=== PATIENT | male | born 1970 | race Caucasian/White ===

== ENCOUNTER 2016-10-10 19:23 | Emergency (ER) | payer OTHER ==
[~2016-10-10 19:23] MED LIST: AMOXICILLIN PO; ASA CHILDREN'S81 MG PO; BYSTOLIC20 MG PO; DAILY VITAMIN1 EAC3 PO; FOLVITE-DPS1 MG PO; NEXIUM OTC PO; ZESTORETIC 10-1 EACH PO
--- NOTE | 2016-10-11 19:14 | ER ---
ADMIT: 10/10/2016 RM/LOC: ER [facility] MR#: [id number] [address] [id number] IBETHKACY SHERWOOD Jb [address] [address] Emergency Room Report SEX: M AGE: 45 : 1970 DATE: 10/10/2016 HISTORY OF PRESENT ILLNESS: The patient is a 45-year-old male with a past medical history of hypertension, compliant with his medication, came to the ER with chief complaint of left shoulder pain for 1 week. The patient states he woke up from sleep and noticed the left shoulder on the posterior just lateral to the shoulder blade is painful and tender. The patient denies any diaphoresis. The patient denies any chest pain too. Pain increases on palpation of the posterior chest. PHYSICAL EXAMINATION: VITAL SIGNS: The patient was mildly tachycardic in the ER, and was afebrile, blood pressure systolic was 146. GENERAL: The patient was anxious, but in no pain while he was sitting down still. HEAD and NECK: Noncontributory. There was no bruit on the neck. Trachea midline. LUNGS: Normal bilateral equal breath sounds. HEART: Normal S1, S2 without any murmurs or S3 or S4. ABDOMEN: Soft. EXTREMITIES: There was no swelling of the lower extremities. The rest of the physical examination is noncontributory. The patient had normal range of motion active and passive of the left shoulder. There is no crepitation in the chest. LABORATORY DATA AND IMAGING: Chest x-ray was negative for any pathologies or abnormalities. EKG showed normal sinus rhythm with a rate of 98. Troponin I was negative and WBC was 6.7 with hemoglobin of 16.5, and platelet of 270. Pain was controlled, the patient is stable and can be discharged to home with return precautions and follow up with the primary doctor as needed. Benny Sidhu MD/ ronni JOB #: [id number] CC: Benny Sidhu MD, Attending Physician Miguel Angel Orozco MD, Family Physician
== END 2016-10-10 23:09 | disposition home or self-care (01) ==
LOC: ER 19:23
DX: M25.512 Pain in left shoulder (principal)

== ENCOUNTER 2016-12-08 03:39 | Emergency (ER) | payer OTHER ==
--- NOTE | 2016-12-12 20:15 | ER ---
ADMIT: 12/08/2016 RM/LOC: [facility] MR#: [id number] [address] [address] KACY CRISTINA [address] [place] [id number] Emergency Room Report SEX: M AGE: 45 : 1970 DATE: 12/08/2016 TIME: 0339 hours. Please refer to my T-sheet for complete H and P. Briefly, the patient is a 45- year-old who noticed that he had blood in his sperm tonight, it was just in his sperm, no pain, no other complaints. He states that he had one episode a week ago. He denies any pain, fevers, or chills. No other complaints like I said. He is sexually active. Denies any trauma. PHYSICAL EXAMINATION: VITAL SIGNS: His blood pressure is 141/91, pulse 82, respiratory rate 14, temp 97.3, and saturating 100%. GENERAL: No acute distress. HEENT: Grossly normal. ABDOMEN: Soft. No CVA tenderness. : Exam shows a circumcised male. No lesions on the penis. No pain in the testicles whatsoever. No hernia. EMERGENCY DEPARTMENT COURSE: I checked the urine, it showed 4 red cells, 3+ blood. I gave him a dose of Cipro. I had a long discussion with him, told him it was imperative that he follows up, he understood this, he said he would. ASSESSMENT: Hematospermia. PLAN: Cipro 500 b.i.d. for 7 days. Fluids. Return if worse. Follow up with Pam in 3-4 days to recheck and may require further evaluation in the future. Jeremiah Nicole MD/ ronni JOB #: [id number] CC: Jeremiah Nicole MD, Attending Physician Miguel Angel Orozco MD, Family Physician
== END 2016-12-08 05:57 | disposition home or self-care (01) ==
LOC: ER 03:39
DX: R36.1 Hematospermia (principal); I10 Essential (primary) hypertension; K21.9 Gastro-esophageal reflux disease without esophagitis; Z79.82 Long term (current) use of aspirin; Z79.899 Other long term (current) drug therapy